=== PATIENT | female | born 1935 | race Caucasian/White ===

== ENCOUNTER 2017-01-06 16:44 | Emergency (ER) | payer MEDICARE, OTHER ==
--- NOTE | ~2017-01-06 | CR172 ---
[facility] A Service of [facility] & [facility] RADIOLOGY TEXT RESULTS PATIENT: HAN TURNER LOCATION: [facility] : 33 UNIT #: [id number] AGE: [address]: Gelacio Penn MD SEX: F ORDER DR: [id number] [facility] [address] [place], [place] [address] [id number] E MR#: [id number] Acc #: [id number] NAME: HAN TURNER : 1935 SEX: F STUDY DATE/TIME: 01/06/2017 19:07 UNIT: [facility] ROOM: STUDY DESCRIPTION: CR Knee 3 Views Lt Attending Physician: Gelacio Penn M.D. Ordering Physician: Gelacio Penn M.D. Primary Care Physician: Belem Wilcox M.D. MEDICAL IMAGING REPORT This report is preliminary unless electronic signature is present EXAM Left knee 3 views HISTORY Anterior knee pain and bruising after fall yesterday. FINDINGS Three views of the left knee demonstrate satisfactory knee alignment. Total knee arthroplasty with patellar resurfacing. Mild soft tissue swelling over the anterior knee. Generalized demineralization. No fracture or effusion. IMPRESSION No fracture. Total knee arthroplasty in satisfactory position. Mild soft tissue swelling over the anterior knee. Dictated by... Gregory Gonzalez M.D. THIS IS AN ELECTRONICALLY VERIFIED REPORT Gregory Gonzalez M.D. at 01/06/2017 11:16 PM ROSETTA/ai TD: 01/06/2017 22:22 JOB #: [id number] MEDICAL IMAGING REPORT Page 1 of 1 COPY
[~2017-01-06 16:44] MED LIST: ACTOPLUS MET 151 TA2 PO; ALLEGRA; ALLEGRA180 MG PO; ALTACE; ALTACE10 MG PO; AMBIEN CR PO; ASPIRIN; ASPIRIN325 M1 PO; AVANDAMET 4 MG/1 TA1 PO; AVANDIA; BENTYL10 MG; CALCIUM WITH D PO; CARDIZEM CD; CARTIA; CENTRUM SILVER PO; CLARITIN10 M3 PO; COZAAR100 MG PO; CRANBERRY200 MG PO; CRANBERRY250 MG PO; DEMADEX; DEMADEX10 MG PO; DILTIAZEM 24HR180 MG PO; DILTIAZEM ER180 M1 PO; ESCITALOPRAM OX10 MG PO; FERROUS SULFATE PO; FISH OIL 1,0001 CAP; FISH OIL 1,001000 M1 PO; FISH OIL500 MG PO; FLAGYL250 M1 PO; FLONASE 0.05% N16 G1; GABAPENTIN300 MG PO; GABAPENTIN400 MG PO; GARLIC; KOMBIGLYZE XR1 EAC2 PO; LANSOPRAZOLE30 MG PO; LEVAQUIN250 MG PO; LEXAPRO PO; LIPITOR; LIPITOR20 MG PO; LIPITOR40 MG PO; LOMOTIL TABLET1 TAB PO; LOSARTAN POTASS50 MG PO; METFORMIN; MOBIC PO; MONTELUKAST SOD10 MG PO; MUPIROCIN15 GM TOP; NEURONTIN; NEXIUM PO; NITROGYLCERIN SUBLINGUAL; ONGLYZA5 MG PO; PREVACID; RHINOCORT AQUA8.6 GM; SPIRIVA18 MCG INH; TORSEMIDE10 M1 PO; VICODIN 5/1 TAB 5/50 PO; VICODIN 5/500 T1 TAB PO; ZYLOPRIM100 MG PO
== END 2017-01-06 20:05 | disposition home or self-care (01) ==
LOC: CED 16:44
DX: S80.02XA Contusion of left knee, initial encounter (principal); E11.9 Type 2 diabetes mellitus without complications; I10 Essential (primary) hypertension; Z79.84 Long term (current) use of oral hypoglycemic drugs; Z79.899 Other long term (current) drug therapy; Z88.0 Allergy status to penicillin; Z88.2 Allergy status to sulfonamides; Z88.1 Allergy status to other antibiotic agents; W01.0XXA Fall on same level from slipping, tripping and stumbling without subsequent striking against object, initial encounter; Y93.89 Activity, other specified
CPT/HCPCS: 73562; 99283